=== PATIENT | female | born 1940 | race Caucasian/White ===

== ENCOUNTER 2023-04-06 17:20 | Emergency (ER) | payer MEDICARE, SELFPAY ==
--- NOTE | ~2023-04-06 | CT_ITS ---
EXAMINATION: CT brain wo con DATE: 04/06/2023 18:01 INDICATION: Accidental ingestion of THC. TECHNIQUE: Computed tomography (CT) of the head was performed without intravenous contrast. The mA wa s adjusted according to patient size. Iterative reconstruction technique was employed. Exam dose: 60 5.33 mGy-cm total exam DLP. COMPARISON: None FINDINGS: No intracranial mass lesion or hemorrhage or cerebrovascular accident. No midline shift or mass effect. Moderate cerebral and cerebellar volume loss. Prominent bilateral carotid siphon internal carotid artery calcifications. There is nonspecific dimin ished attenuation of the cerebral white matter, likely due to chronic small vessel ischemic changes. No subdural or epidural hematoma. IMPRESSION: No acute intracranial finding Cerebral atherosclerosis and chronic small vessel ischemic changes of the cerebral white matter Reviewed, dictated and finalized at [facility]. Reviewed, dictated and finalized at [facility]. IMPRESSION: No acute intracranial finding Cerebral atherosclerosis and chronic small vessel ischemic changes of the cereb ral white matter
[2023-04-06 17:18] VITALS: BP 166/80; PULSE 63; RESP 26; TEMP 36.4; O2SAT 98
--- NOTE | 2023-04-06 17:35 | ECG_ITS ---
Measurements Intervals [place] Rate: 58 P: 68 IA: 171 QRS: -19 QRSD: 145 T: 94 QT: 504 QTc: 496 Interpretive Statements SINUS BRADYCARDIA LEFT BUNDLE BRANCH BLOCK ABNORMAL ECG NO PREVIOUS ECG AVAILABLE FOR COMPARISON Electronically Signed On 04-06-2023 20:24:34 CDT by Polo Galloway D.O.
[2023-04-06 17:37] VITALS: PULSE 61
[2023-04-06 17:45] LABS: Glucose Point of Care 131 mg/dl (65-105)
[2023-04-06 17:48] VITALS: RESP 14
--- NOTE | 2023-04-06 17:51 | ED.OVERDOSE ---
HPI - Overdose General Chief Complaint: Overdose Stated Complaint: thc overdose Time Seen by Provider: 04/06/23 17:29 History of Present Illness HPI Narrative: Patient is an 82-year-old female with history of prior kidney and liver transplant, follows at [facility] in [place], breast cancer, lung cancer here after accidental ingestion of THC 1-2 hours prior to arrival. Patient reportedly ingested approximately 20-30 mg of THC. Family states this is her first time using THC. She began hallucinating and then family noted that she became more more drowsy. They note that she was leaning against a wall and seemed to be more and more tired and they were concerned that she would follow sleep and not wake up. No falls witnessed by family. Patient notes that she feels nausea. Patient denies any chest pain, shortness of breath, cough. Related Data Allergies Allergy/AdvReac Type Severity Reaction Status Date / Time No Known Allergies Allergy Verified 04/06/23 17:36 Review of Systems Review of Systems: CONSTITUTIONAL: Denies fever, chills ENT: Denies rhinorrhea, congestion CARDIOVASCULAR: Denies chest pain RESPIRATORY: Denies cough or dyspnea. GASTROINTESTINAL: Nausea, vomiting, Denies abdominal pain GENITOURINARY: Denies dysuria MUSCULOSKELETAL: Denies back pain, joint pain, or myalgia. NEUROLOGIC: Denies headache, numbness, or weakness. Exam Narrative: GENERAL: Well-appearing, well-nourished, and in no acute distress. HEAD: Normocephalic, atraumatic. EYES: right pupillary defect with some scarring appreciated, likely related to prior eye surgeries and EOMI. ENT: Nares clear. Mucous membranes moist. NECK: Supple. CHEST: Clear to auscultation. No respiratory distress. HEART: Regular rate and rhythm. Normal peripheral pulses. ABDOMEN: Soft, nontender, nondistended. EXTREMITIES: Normal range of motion. No edema. SKIN: Warm, dry, no rash. NEURO: No focal deficits. Alert and oriented x2. PSYCH: Flat affect Course Course Emergency Course: Patient seen and evaluated, in no acute distress. She is alert, oriented to self and place. Most likely differential is reaction to THC. Given multiple comorbidities will do CT head, basic lab work, EKG. CBC within normal limits, electrolytes within normal limits, normal renal function, normal LFTs. Normal troponin. Patient re-evaluated, feeling much better, has been awake, up talking with family, they feel comfortable discharging home at this time. The results of pertinent diagnostic studies and exam findings were discussed. The patient?s provisional diagnosis and plan of care were discussed with the patient and present family. The patient and/or present family expressed understanding of the diagnosis and plan. The nurse was instructed to provide written instructions and appropriate follow-up information. The patient understands their need and responsibility to obtain additional follow-up as instructed. The risks of medications administered and prescribed were discussed with the patient and family present. Vital Signs Vital signs: Vital Signs Temperature 97.6 F 04/06/23 17:18 Pulse Rate 63 04/06/23 17:18 Respiratory Rate 26 H 04/06/23 17:18 Blood Pressure 166/80 H 04/06/23 17:18 Pulse Oximetry 98 04/06/23 17:18 Oxygen Delivery Room Air 04/06/23 17:18 Temperature 97.6 F 04/06/23 17:18 Pulse Rate 63 04/06/23 22:17 Respiratory Rate 13 04/06/23 22:17 Blood Pressure 149/92 H 04/06/23 22:17 Pulse Oximetry 99 04/06/23 22:17 Oxygen Delivery Room Air 04/06/23 17:18 MDM - Overdose Lab Data 04/06/23 18:36 04/06/23 18:36 Labs: Lab Results 04/06/23 04/06/23 Range/Units 17:43 18:36 WBC 9.4 (4.5-10.0) K/mm3 RBC 3.84 L (4.2-5.4) M/mm3 Hgb 11.5 L (12.0-15.0) g/dL Hct 35.4 L (37.0-47.0) % MCV 92.2 (80-100) fl MCH 29.9 (26-34) pg MCHC 32.5 (32-36) g/dl RDW 13.5 (11.5-14.5)
--- NOTE | 2023-04-06 17:55 | PC.NURSE ---
Spoke with Sophia JOLLEY at [facility] who advised systematic supportive care for pt symptoms.
[2023-04-06] MEDS: ONDANSETRON INJ 4 MG/2 ML VIAL IV PUSH (18:09)
[2023-04-06 18:38] VITALS: BP 166/69; PULSE 57; RESP 16; O2SAT 94
[2023-04-06 18:44] LABS: Basophils Percent Auto 0.3 % (0.2-1.2); Eosinophils Percent Auto 0.2 % (0-4.4); Hematocrit 35.4 % (37.0-47.0); Hemoglobin 11.5 g/dL (12.0-15.0); Immature Granulocyte Absolute 0.03 K/mm3 (0.00-0.031); Immature Granulocyte Percent A 0.3 % (0-0.5); Lymphocytes Absolute Auto 1.12 K/mm3 (0.9-3.2); Lymphocytes Percent Auto 11.9 % (18.3-44.2); Mean Corpuscular HGB Conc 32.5 g/dl (32-36); Mean Corpuscular Hemoglobin 29.9 pg (26-34); Mean Corpuscular Volume 92.2 fl (80-100); Mean Platelet Volume 11.2 fl (7.4-10.4); Monocytes Absolute Auto 0.9 K/mm3 (0.1-0.6); Monocytes Percent Auto 9.2 % (2.6-8.5); Neutrophils Absolute Auto 7.4 K/mm3 (1.3-6.7); Neutrophils Percent Auto 78.1 % (45.5-73.1); Platelet Count Result 197 k/mm3 (150-375); Red Blood Count 3.84 M/mm3 (4.2-5.4); Red Cell Distribution Width 13.5 % (11.5-14.5); White Blood Count 9.4 K/mm3 (4.5-10.0)
[2023-04-06 18:54] LABS: Magnesium 1.8 mg/dL (1.6-2.3)
[2023-04-06 18:56] LABS: Alanine Aminotransferase 18 U/L (6-35); Albumin Level 3.9 g/dL (3.5-5.1); Alkaline Phosphatase 56 U/L (38-126); Anion Gap 6 mmol/L (8-16); Aspartate Amino Transferase 32 U/L (14-36); Bilirubin,Total 0.8 mg/dL (0.2-1.3); Blood Urea Nitrogen 25 mg/dL (7-17); Carbon Dioxide 26 mmol/L (22-30); Chloride 106 mmol/L (98-107); Estimated CRCL calculation 34 ml/min; Estimated Glomerular Filt Rate > 60; Glucose 138 mg/dL (65-110); Potassium 4.1 mmol/L (3.4-5.0); Sodium 138 mmol/L (137-145)
[2023-04-06 19:05] LABS: Troponin I < 0.012 ng/mL (0.000-0.034)
[2023-04-06 20:31] VITALS: BP 160/69; PULSE 60; RESP 15; O2SAT 100
[2023-04-06] MEDS: ONDANSETRON HCL ODT 4 MG TABLET PO (22:08)
[2023-04-06 22:17] VITALS: BP 149/92; PULSE 63; RESP 13; O2SAT 99
== END 2023-04-06 22:22 | disposition home or self-care (01) ==
PROVIDERS: Emergency Provider Student in an Organized Health Care Education/Training Program
DX: T40.711A Poisoning by cannabis, accidental (unintentional), initial encounter (principal); R11.2 Nausea with vomiting, unspecified; R40.0 Somnolence; Z94.0 Kidney transplant status; Z94.4 Liver transplant status; Z85.3 Personal history of malignant neoplasm of breast; Z85.118 Personal history of other malignant neoplasm of bronchus and lung; I67.2 Cerebral atherosclerosis; R00.1 Bradycardia, unspecified; I44.7 Left bundle-branch block, unspecified
CPT/HCPCS: 36415; 70450; 80053; 82948; 83735; 84443; 84484; 85025; 93005; 96374; 99284; A9270; J2405